=== PATIENT | female | born 1960 | race African-American/Black ===

== ENCOUNTER 2019-06-05 09:06 | Emergency (ER) | payer BC ==
[~2019-06-05] VITALS: Ht 175.3 cm; Wt 106.6 kg
[~2019-06-05 09:06] MED LIST: PREMPHASE 0.621 EAC1
[2019-06-05] MEDS ORDERED: BENAZEPRIL-HCT1 EACH PO (09:33)
[2019-06-05 11:59] LABS: HEMATOCRIT 40.8 % (37.0-47.0); HEMOGLOBIN 13.4 gm/dL (12.0-15.0); MCH 29.4 pg (26.0-34.0); MCHC 32.7 g/dL (28.0-37.0); MCV 89.9 fL (80.0-100.0); RBC 4.54 mil/uL (4.20-5.00); RDW 13.1 % (10.5-14.5); WBC 6.5 thou/uL (4.0-11.0)
[2019-06-05 12:00] LABS: CALCIUM 9.3 mg/dL (8.5-10.1); CREATININE 0.9 mg/dL (0.6-1.0); POTASSIUM 3.8 mmol/L (3.5-5.1)
[2019-06-05 12:06] LABS: ALBUMIN 4.1 g/dL (3.4-5.0); APTT 27.5 Seconds (24.5-32.8); TOTAL BILIRUBIN 0.6 mg/dL (<0.1-1.0); TOTAL PROTEIN 8.1 g/dL (6.4-8.2)
[2019-06-05] MEDS ORDERED: ELIQUIS5 M1 PO (12:43)
[2019-06-05 12:58] VITALS: BP 177/84
== END 2019-06-05 12:58 | disposition home or self-care (01) ==
LOC: ER 09:06
PROVIDERS: Emergency Medicine
DX: I82.622 Acute embolism and thrombosis of deep veins of left upper extremity (principal); Z88.1 Allergy status to other antibiotic agents; Z79.899 Other long term (current) drug therapy